=== PATIENT | female | born 1980 | race Caucasian/White ===

== ENCOUNTER 2017-09-24 19:32 | Observation (INO) | payer OTHER ==
[2017-09-24] MEDS: IBUPROFEN 800 MG TAB PO (20:15)
[2017-09-24] MEDS: NITROGLYCERIN 2% 1 GM OINT PKT TD (20:25)
[2017-09-24] MEDS: ASPIRIN 81 MG TAB PO (20:26)
[2017-09-24] MEDS: NITROGLYCERIN (SL) 0.4 MG TAB SL (20:26)
[2017-09-24 20:55] LABS: ADD MAN DIFF? NO
[2017-09-24 20:56] LABS: WHITE BLOOD COUNT 14.9 10^3/ul (4.8-10.8)
[2017-09-24 20:56] LABS: BASOPHILS % 0.2 % (0.0-2.0); EOSINOPHILS # 0.1 10^3/ul (0.0-0.5); EOSINOPHILS % 0.4 % (0.0-7.0); HEMATOCRIT 36.8 % (37.0-47.0); HEMOGLOBIN 11.7 g/dl (12.0-16.0); LYMPHOCYTES # 2.5 10^3/ul (0.8-2.9); LYMPHOCYTES % 16.7 % (15.0-51.0); MEAN CORPUSCULAR HEMOGLOBIN 23.9 pg (29.0-33.0); MEAN CORPUSCULAR HGB CONC 31.8 g/dl (32.0-37.0); MEAN CORPUSCULAR VOLUME 75.3 fl (82.0-101.0); MEAN PLATELET VOLUME 9.1 fl (7.4-10.4); MONOCYTE # 1.2 10^3/ul (0.3-0.9); MONOCYTES % 8.2 % (0.0-11.0); PLATELET COUNT 268 10^3/UL (140-415); RED BLOOD COUNT 4.89 10^6/ul (4.20-5.40); RED CELL DISTRIBUTION WIDTH 16.9 % (11.5-14.5)
[2017-09-24 21:20] LABS: ANION GAP 18 (8-16); BLOOD UREA NITROGEN 12 mg/dl (7-20); CALCIUM 9.7 mg/dl (8.4-10.2); CARBON DIOXIDE 29 mmol/L (21-31); CHLORIDE 99 mmol/L (97-110); CREATININE 0.55 mg/dl (0.44-1.00); GLUCOSE 122 mg/dl (70-220); SODIUM 142 mmol/L (135-144)
[2017-09-24] MEDS ORDERED: ONDANSETRON 4 MG INJ IV (22:00)
[2017-09-25] MEDS ORDERED: NACL 0.9% 3 ML SYG IV
[2017-09-25 01:30] LABS: CREATINE KINASE 39 IU/L (23-200)
[2017-09-25 01:42] LABS: CK INDEX 0.6; TROPONIN-I 0.025 ng/ml (0.00-0.12)
[2017-09-25 01:44] LABS: CK-MB < 0.22 ng/ml (0.0-2.4)
[2017-09-25] MEDS: ACETAMINOPHEN 325 MG TAB PO ×3 (03:54→21:47)
[2017-09-25 05:16] LABS: CREATINE KINASE 37 IU/L (23-200)
[2017-09-25] MEDS: NITROGLYCERIN (SL) 0.4 MG TAB SL (05:26)
[2017-09-25 05:29] LABS: CK INDEX 0.6
[2017-09-25 05:33] LABS: CK-MB < 0.22 ng/ml (0.0-2.4); TROPONIN-I < 0.012 ng/ml (0.00-0.12)
[2017-09-25] MEDS: AMLODIPINE 2.5 MG TAB PO (09:00)
[2017-09-25] MEDS ORDERED: FAMOTIDINE 20 MG INJ IV (09:00)
[2017-09-25] MEDS: PANTOPRAZOLE (EC) 40 MG TAB PO ×2 (09:27→09:31)
[2017-09-25] MEDS: FERROUS SULFATE (EC) 325 MG TAB PO ×3 (09:27→20:54)
[2017-09-25] MEDS: ASPIRIN (EC) 81 MG TAB PO (09:27)
[2017-09-25] MEDS: ISOSORBIDE DINITRATE 5 MG TAB PO ×7 (09:27→21:48)
[2017-09-25] MEDS: ASCORBIC ACID 500 MG TAB PO (09:28)
[2017-09-25] MEDS: ENOXAPARIN 40 MG/0.4 ML SYG SC (09:29)
[2017-09-25 13:35] LABS: CREATINE KINASE 32 IU/L (23-200)
[2017-09-25 13:48] LABS: CK INDEX 0.7; CK-MB < 0.22 ng/ml (0.0-2.4); TROPONIN-I < 0.012 ng/ml (0.00-0.12)
[2017-09-25 15:20] LABS: C-REACTIVE PROTEIN 1.7 mg/dl (0.0-0.9)
[2017-09-25 17:39] LABS: ERYTHROCYTE SEDIMENTATION RATE 17 mm/Hr (0-20)
[2017-09-25] MEDS: ATORVASTATIN 20 MG TAB PO (20:54)
[2017-09-25] MEDS: RANOLAZINE (SR) 500 MG TAB PO ×3 (20:55→21:48)
[2017-09-26] MEDS: HYDROCODONE/APAP (5/325) TAB PO ×2 (04:03→12:01)
[2017-09-26 06:28] LABS: CHOLESTEROL 123 mg/dl (100-200)
[2017-09-26 06:28] LABS: CHOL/HDL RATIO 4.2 RATIO; HDL CHOLESTEROL 29 mg/dl (34-82); LDL CHOLESTEROL,CALCULATED 50 mg/dl; TRIGLYCERIDES 218 mg/dl (0-149)
[2017-09-26 06:45] LABS: TROPONIN-I < 0.012 ng/ml (0.00-0.12)
[2017-09-26] MEDS: PANTOPRAZOLE (EC) 40 MG TAB PO (07:30)
[2017-09-26] MEDS: AMLODIPINE 2.5 MG TAB PO (09:00)
[2017-09-26] MEDS: FERROUS SULFATE (EC) 325 MG TAB PO ×3 (09:18→20:44)
[2017-09-26] MEDS: ASCORBIC ACID 500 MG TAB PO (09:18)
[2017-09-26] MEDS: ASPIRIN (EC) 81 MG TAB PO (09:19)
[2017-09-26] MEDS: ENOXAPARIN 40 MG/0.4 ML SYG SC (09:22)
[2017-09-26 11:26] LABS: ADD MAN DIFF? NO
[2017-09-26 11:30] LABS: WHITE BLOOD COUNT 9.5 10^3/ul (4.8-10.8)
[2017-09-26 11:30] LABS: BASOPHILS % 0.2 % (0.0-2.0); EOSINOPHILS # 0.1 10^3/ul (0.0-0.5); EOSINOPHILS % 1.1 % (0.0-7.0); HEMATOCRIT 33.2 % (37.0-47.0); HEMOGLOBIN 10.5 g/dl (12.0-16.0); LYMPHOCYTES # 3.5 10^3/ul (0.8-2.9); LYMPHOCYTES % 36.5 % (15.0-51.0); MEAN CORPUSCULAR HGB CONC 31.6 g/dl (32.0-37.0); MEAN PLATELET VOLUME 11.4 fl (7.4-10.4); MONOCYTE # 0.9 10^3/ul (0.3-0.9); MONOCYTES % 9.7 % (0.0-11.0); NEUTROPHILS % 52.1 % (39.0-77.0); PLATELET COUNT 199 10^3/UL (140-415); RED BLOOD COUNT 4.37 10^6/ul (4.20-5.40); RED CELL DISTRIBUTION WIDTH 17.3 % (11.5-14.5)
[2017-09-26 11:41] LABS: ANION GAP 11 (8-16); BLOOD UREA NITROGEN 11 mg/dl (7-20); CARBON DIOXIDE 31 mmol/L (21-31); CHLORIDE 106 mmol/L (97-110); CREATININE 0.47 mg/dl (0.44-1.00); GLUCOSE 115 mg/dl (70-220); MAGNESIUM 1.9 mg/dl (1.7-2.5); POTASSIUM 4.2 mmol/L (3.5-5.1); SODIUM 144 mmol/L (135-144)
[2017-09-26] MEDS: RANOLAZINE (SR) 500 MG TAB PO (20:44)
[2017-09-26] MEDS: ATORVASTATIN 20 MG TAB PO (20:44)
[2017-09-27] MEDS: HYDROCODONE/APAP (5/325) TAB PO ×2 (05:38→11:41)
[2017-09-27] MEDS: ASPIRIN (EC) 81 MG TAB PO (08:03)
[2017-09-27] MEDS: PANTOPRAZOLE (EC) 40 MG TAB PO (08:03)
[2017-09-27] MEDS: RANOLAZINE (SR) 500 MG TAB PO (08:03)
[2017-09-27] MEDS: FERROUS SULFATE (EC) 325 MG TAB PO ×2 (08:03→12:24)
[2017-09-27] MEDS: ACETAMINOPHEN 325 MG TAB PO (08:03)
[2017-09-27] MEDS: ENOXAPARIN 40 MG/0.4 ML SYG SC (08:16)
[2017-09-27] MEDS: AMLODIPINE 2.5 MG TAB PO (08:16)
[2017-09-27] MEDS: ISOSORBIDE DINITRATE 5 MG TAB PO ×2 (08:16→12:25)
[2017-09-27] MEDS: ASCORBIC ACID 500 MG TAB PO (08:46)
[2017-09-27] MEDS: ONDANSETRON 4 MG INJ IV (11:40)
[2017-09-27] MEDS: DOCUSATE SODIUM 100 MG CAP PO (11:41)
[2017-09-27] MEDS: SUMATRIPTAN 25 MG TAB PO (14:12)
== END 2017-09-27 15:19 | disposition home or self-care (01) ==
LOC: E/R 19:32 → MS3 21:45
DX: G43.109 Migraine with aura, not intractable, without status migrainosus (principal); R07.9 Chest pain, unspecified; R53.1 Weakness; I10 Essential (primary) hypertension; E78.5 Hyperlipidemia, unspecified; D72.829 Elevated white blood cell count, unspecified; E66.9 Obesity, unspecified; Z68.36 Body mass index [BMI] 36.0-36.9, adult; D50.9 Iron deficiency anemia, unspecified; K21.9 Gastro-esophageal reflux disease without esophagitis; Z79.82 Long term (current) use of aspirin
CPT/HCPCS: 36415; 70450; 70553; 71045; 80048; 80061; 81025; 82550; 82553; 83735; 84100; 84484; 85025; 85651; 86140; 93005; 93306; 99285-25

== ENCOUNTER 2017-09-27 15:58 | Emergency (ER) | payer OTHER | END 2017-09-27 17:11 | disposition home or self-care (01) | LOC: E/R 15:58 | DX: R55 Syncope and collapse (principal); I25.10 Atherosclerotic heart disease of native coronary artery without angina pectoris; I10 Essential (primary) hypertension; Z79.82 Long term (current) use of aspirin | CPT/HCPCS: 82962; 93005; 99284-25 ==

== ENCOUNTER 2017-10-26 08:24 | Inpatient (IN) | payer OTHER ==
[2017-10-26] MEDS: ONDANSETRON 4 MG INJ IV (08:59)
[2017-10-26] MEDS: morphine 4 MG/ML VIAL IV (08:59)
[2017-10-26] MEDS: NITROGLYCERIN 2% 1 GM OINT PKT TD (09:00)
[2017-10-26] MEDS: ASPIRIN 81 MG TAB PO (09:00)
[2017-10-26 09:38] LABS: ADD MAN DIFF? NO
[2017-10-26 09:51] LABS: WHITE BLOOD COUNT 10.1 10^3/ul (4.8-10.8)
[2017-10-26 09:51] LABS: BASOPHILS % 0.2 % (0.0-2.0); EOSINOPHILS # 0.1 10^3/ul (0.0-0.5); EOSINOPHILS % 0.8 % (0.0-7.0); HEMATOCRIT 34.8 % (37.0-47.0); HEMOGLOBIN 11.4 g/dl (12.0-16.0); LYMPHOCYTES # 2.5 10^3/ul (0.8-2.9); MEAN CORPUSCULAR HEMOGLOBIN 24.4 pg (29.0-33.0); MEAN CORPUSCULAR HGB CONC 32.8 g/dl (32.0-37.0); MEAN CORPUSCULAR VOLUME 74.5 fl (82.0-101.0); MEAN PLATELET VOLUME 9.5 fl (7.4-10.4); MONOCYTE # 1.1 10^3/ul (0.3-0.9); MONOCYTES % 10.7 % (0.0-11.0); NEUTROPHIL # 6.4 10^3/ul (1.6-7.5); PLATELET COUNT 129 10^3/UL (140-415); RED BLOOD COUNT 4.67 10^6/ul (4.20-5.40); RED CELL DISTRIBUTION WIDTH 15.9 % (11.5-14.5)
[2017-10-26 10:04] LABS: ANION GAP 15 (8-16); BLOOD UREA NITROGEN 10 mg/dl (7-20); CALCIUM 8.6 mg/dl (8.4-10.2); CARBON DIOXIDE 26 mmol/L (21-31); CHLORIDE 105 mmol/L (97-110); CREATININE 0.46 mg/dl (0.44-1.00); GLUCOSE 115 mg/dl (70-220); POTASSIUM 4.1 mmol/L (3.5-5.1); SODIUM 142 mmol/L (135-144)
[2017-10-26 10:16] LABS: TROPONIN-I 0.013 ng/ml (0.000-0.120)
[2017-10-26 10:28] LABS: CREATINE KINASE 65 IU/L (23-200)
[2017-10-26 10:41] LABS: CK INDEX 0.5; TROPONIN-I 0.014 ng/ml (0.000-0.120)
[2017-10-26] MEDS ORDERED: ONDANSETRON 4 MG INJ IV ×2 (12:00→15:00)
[2017-10-26] MEDS ORDERED: ACETAMINOPHEN 325 MG TAB PO ×2 (12:00→15:00)
[2017-10-26] MEDS ORDERED: NACL 0.9% 3 ML SYG IV (15:00)
[2017-10-26] MEDS ORDERED: MAGNESIUM HYDROXIDE 30ML CUP PO (15:00)
[2017-10-26] MEDS ORDERED: BISACODYL (EC) 5 MG TAB PO (15:00)
[2017-10-26] MEDS ORDERED: BISACODYL 10 MG SUPP PR (15:00)
[2017-10-26] MEDS ORDERED: ZOLPIDEM 5 MG TAB PO (15:00)
[2017-10-26 15:28] LABS: CREATINE KINASE 71 IU/L (23-200)
[2017-10-26 15:40] LABS: CK INDEX 1.8
[2017-10-26 15:48] LABS: TROPONIN-I 0.334 ng/ml (0.000-0.120)
[2017-10-26] MEDS: IBUPROFEN 400 MG TAB NGT (16:48)
[2017-10-26] MEDS: FERROUS SULFATE (EC) 325 MG TAB PO (20:21)
[2017-10-26] MEDS: ISOSORBIDE DINITRATE 5 MG TAB PO ×2 (20:21→20:22)
[2017-10-26] MEDS: RANOLAZINE (SR) 500 MG TAB PO (20:21)
[2017-10-26] MEDS: ATORVASTATIN 20 MG TAB PO (20:21)
[2017-10-26 20:37] LABS: CREATINE KINASE 68 IU/L (23-200)
[2017-10-26 20:49] LABS: CK INDEX 1.6; CK-MB 1.06 ng/ml (0.0-2.4)
[2017-10-26 20:55] LABS: TROPONIN-I 0.355 ng/ml (0.000-0.120)
[2017-10-26] MEDS: HYDROCODONE/APAP (5/325) TAB PO (22:08)
[2017-10-27 02:47] LABS: CREATINE KINASE 65 IU/L (23-200)
[2017-10-27 02:50] LABS: CHOL/HDL RATIO 3.5 RATIO; HDL CHOLESTEROL 30 mg/dl (34-82); LDL CHOLESTEROL,CALCULATED 53 mg/dl; TRIGLYCERIDES 117 mg/dl (0-149)
[2017-10-27 02:50] LABS: CHOLESTEROL 106 mg/dl (100-200)
[2017-10-27 03:00] LABS: CK INDEX 1.5; CK-MB 0.96 ng/ml (0.0-2.4)
[2017-10-27 03:07] LABS: TROPONIN-I 0.211 ng/ml (0.000-0.120)
[2017-10-27] MEDS: HYDROCODONE/APAP (5/325) TAB PO ×3 (04:04→22:23)
[2017-10-27] MEDS: PANTOPRAZOLE (EC) 40 MG TAB PO (05:44)
[2017-10-27] MEDS: RANOLAZINE (SR) 500 MG TAB PO ×2 (08:37→20:30)
[2017-10-27] MEDS: FERROUS SULFATE (EC) 325 MG TAB PO ×3 (08:37→20:29)
[2017-10-27] MEDS: ASCORBIC ACID 500 MG TAB PO (08:38)
[2017-10-27] MEDS: ISOSORBIDE DINITRATE 5 MG TAB PO ×3 (08:38→20:30)
[2017-10-27] MEDS: IBUPROFEN 400 MG TAB NGT (08:38)
[2017-10-27] MEDS: AMLODIPINE 2.5 MG TAB PO (08:38)
[2017-10-27] MEDS: ASPIRIN (EC) 81 MG TAB PO (08:38)
[2017-10-27] MEDS: ENOXAPARIN 40 MG/0.4 ML SYG SC (08:41)
[2017-10-27] MEDS: ATORVASTATIN 20 MG TAB PO (20:29)
[2017-10-27] MEDS: METHYLPREDNISOLONE 40 MG INJ IV (20:31)
[2017-10-27] MEDS: COLCHICINE 0.6 MG TAB PO (22:15)
[2017-10-28] MEDS: HYDROCODONE/APAP (5/325) TAB PO (05:58)
[2017-10-28] MEDS: PANTOPRAZOLE (EC) 40 MG TAB PO (05:58)
[2017-10-28 07:44] LABS: ADD MAN DIFF? NO
[2017-10-28 07:56] LABS: BASOPHILS % 0.1 % (0.0-2.0); HEMATOCRIT 34.6 % (37.0-47.0); HEMOGLOBIN 11.2 g/dl (12.0-16.0); LYMPHOCYTES # 1.4 10^3/ul (0.8-2.9); LYMPHOCYTES % 14.2 % (15.0-51.0); MEAN CORPUSCULAR HGB CONC 32.4 g/dl (32.0-37.0); MEAN CORPUSCULAR VOLUME 74.2 fl (82.0-101.0); MEAN PLATELET VOLUME 10.1 fl (7.4-10.4); MONOCYTE # 0.4 10^3/ul (0.3-0.9); MONOCYTES % 3.6 % (0.0-11.0); NEUTROPHIL # 8.3 10^3/ul (1.6-7.5); NEUTROPHILS % 81.6 % (39.0-77.0); PLATELET COUNT 134 10^3/UL (140-415); RED BLOOD COUNT 4.66 10^6/ul (4.20-5.40); RED CELL DISTRIBUTION WIDTH 15.6 % (11.5-14.5)
[2017-10-28 07:56] LABS: WHITE BLOOD COUNT 10.1 10^3/ul (4.8-10.8)
[2017-10-28 07:57] LABS: POSITIVE DIFF @See below
[2017-10-28] MEDS: SUMATRIPTAN 25 MG TAB PO (08:12)
[2017-10-28] MEDS: FERROUS SULFATE (EC) 325 MG TAB PO ×2 (08:12→11:45)
[2017-10-28] MEDS: ASPIRIN (EC) 81 MG TAB PO (08:12)
[2017-10-28] MEDS: AMLODIPINE 2.5 MG TAB PO (08:12)
[2017-10-28] MEDS: RANOLAZINE (SR) 500 MG TAB PO (08:12)
[2017-10-28] MEDS: ASCORBIC ACID 500 MG TAB PO (08:12)
[2017-10-28] MEDS: ISOSORBIDE DINITRATE 5 MG TAB PO ×2 (08:12→11:45)
[2017-10-28] MEDS: COLCHICINE 0.6 MG TAB PO (08:12)
[2017-10-28] MEDS: METHYLPREDNISOLONE 40 MG INJ IV (08:12)
[2017-10-28 08:16] LABS: ALANINE AMINOTRANSFERASE 33 IU/L (13-69); ALBUMIN 3.8 g/dl (3.3-4.9); ALBUMIN/GLOBULIN RATIO 1.22; ALKALINE PHOSPHATASE 74 IU/L (42-121); ANION GAP 16 (8-16); ASPARTATE AMINO TRANSFERASE 23 IU/L (15-46); BLOOD UREA NITROGEN 7 mg/dl (7-20); CALCIUM 9.1 mg/dl (8.4-10.2); CARBON DIOXIDE 28 mmol/L (21-31); CHLORIDE 104 mmol/L (97-110); CREATININE 0.45 mg/dl (0.44-1.00); GLUCOSE 182 mg/dl (70-220); POTASSIUM 4.4 mmol/L (3.5-5.1); SODIUM 144 mmol/L (135-144); TOTAL PROTEIN 6.9 g/dl (6.1-8.1)
[2017-10-28] MEDS: DOCUSATE SODIUM 100 MG CAP PO (08:19)
[2017-10-28 08:32] LABS: TROPONIN-I 0.052 ng/ml (0.000-0.120)
[2017-10-28] MEDS: ENOXAPARIN 40 MG/0.4 ML SYG SC (08:32)
[2017-10-28] MEDS: IBUPROFEN 400 MG TAB NGT ×2 (09:36→13:48)
== END 2017-10-28 15:50 | disposition home or self-care (01) | DRG 311 ==
LOC: TEL 10-27 17:42 → E/R 08:24 → MS3 11:38
DX: I20.1 Angina pectoris with documented spasm (principal); D64.9 Anemia, unspecified; M06.80 Other specified rheumatoid arthritis, unspecified site; E66.9 Obesity, unspecified; R00.1 Bradycardia, unspecified; R79.89 Other specified abnormal findings of blood chemistry; F41.9 Anxiety disorder, unspecified; E78.5 Hyperlipidemia, unspecified; Z86.79 Personal history of other diseases of the circulatory system; Z68.36 Body mass index [BMI] 36.0-36.9, adult; Z95.5 Presence of coronary angioplasty implant and graft; Z79.82 Long term (current) use of aspirin
CPT/HCPCS: 36415; 71045; 80048; 80053; 80061; 81025; 82550; 82553; 84484; 85025; 93005; 96374; 96375; 99217; 99285-25; G0378

== ENCOUNTER 2017-11-25 19:14 | Emergency (ER) | payer OTHER ==
[2017-11-25] MEDS: SOD CHLORIDE 0.9% 1,000 ML IV (21:45)
[2017-11-25] MEDS: FAMOTIDINE 20 MG INJ IV (21:46)
[2017-11-25] MEDS: ONDANSETRON 4 MG INJ IV (21:46)
[2017-11-25] MEDS: morphine 4 MG/ML VIAL IV (21:46)
[2017-11-25 22:06] LABS: ADD MAN DIFF? NO
[2017-11-25 22:15] LABS: BASOPHILS % 0.2 % (0.0-2.0); EOSINOPHILS # 0.1 10^3/ul (0.0-0.5); EOSINOPHILS % 0.6 % (0.0-7.0); HEMOGLOBIN 11.7 g/dl (12.0-16.0); LYMPHOCYTES # 2.9 10^3/ul (0.8-2.9); MEAN CORPUSCULAR HEMOGLOBIN 24.5 pg (29.0-33.0); MEAN CORPUSCULAR HGB CONC 31.6 g/dl (32.0-37.0); MEAN CORPUSCULAR VOLUME 77.6 fl (82.0-101.0); MEAN PLATELET VOLUME 9.4 fl (7.4-10.4); MONOCYTE # 0.9 10^3/ul (0.3-0.9); MONOCYTES % 9.2 % (0.0-11.0); NEUTROPHIL # 5.7 10^3/ul (1.6-7.5); NEUTROPHILS % 59.5 % (39.0-77.0); PLATELET COUNT 283 10^3/UL (140-415); RED BLOOD COUNT 4.77 10^6/ul (4.20-5.40); RED CELL DISTRIBUTION WIDTH 16.7 % (11.5-14.5)
[2017-11-25 22:15] LABS: WHITE BLOOD COUNT 9.6 10^3/ul (4.8-10.8)
[2017-11-25 22:32] LABS: ADD UMIC YES; UR ASCORBIC ACID 40 mg/dL (NEGATIVE); UR BILIRUBIN (Dip) NEGATIVE (NEGATIVE); UR BLOOD (Dip) NEGATIVE (NEGATIVE); UR CLARITY CLEAR (CLEAR); UR COLOR AMBER (YELLOW); UR GLUCOSE (Dip) NEGATIVE (NEGATIVE); UR KETONES (Dip) TRACE mg/dL (NEGATIVE); UR LEUKOCYTE ESTERASE (Dip) NEGATIVE Leu/ul (NEGATIVE); UR MUCUS MANY /HPF (NONE SEEN); UR NITRITE (Dip) NEGATIVE (NEGATIVE); UR RBC 2 /HPF (0-5); UR SPECIFIC GRAVITY (Dip) 1.029 (1.003-1.030); UR SQUAMOUS EPITHELIAL CELL FEW /HPF (FEW); UR TOTAL PROTEIN (Dip) 1+ mg/dl (NEGATIVE); UR UROBILINOGEN (Dip) NEGATIVE (NEGATIVE); UR WBC 0 /HPF (0-5)
[2017-11-25 22:35] LABS: ALANINE AMINOTRANSFERASE 45 IU/L (13-69); ALBUMIN 4.4 g/dl (3.3-4.9); ALBUMIN/GLOBULIN RATIO 1.25; ALKALINE PHOSPHATASE 82 IU/L (42-121); ANION GAP 14 (8-16); ASPARTATE AMINO TRANSFERASE 26 IU/L (15-46); BILIRUBIN,INDIRECT 0.4 mg/dl (0-1.1); BILIRUBIN,TOTAL 0.4 mg/dl (0.2-1.3); BLOOD UREA NITROGEN 10 mg/dl (7-20); CALCIUM 9.3 mg/dl (8.4-10.2); CARBON DIOXIDE 29 mmol/L (21-31); CHLORIDE 103 mmol/L (97-110); GLUCOSE 93 mg/dl (70-220); LIPASE 41 U/L (23-300); POTASSIUM 3.7 mmol/L (3.5-5.1); SODIUM 142 mmol/L (135-144); TOTAL PROTEIN 7.9 g/dl (6.1-8.1)
== END 2017-11-25 23:20 | disposition home or self-care (01) ==
LOC: FTE 19:14
DX: K80.50 Calculus of bile duct without cholangitis or cholecystitis without obstruction (principal); Z79.82 Long term (current) use of aspirin
CPT/HCPCS: 36415; 74176; 80053; 81001; 81025; 83690; 85025; 96374; 96375; 99285-25

== ENCOUNTER 2018-01-06 06:47 | Day surgery (SDC) | payer OTHER ==
[2018-01-06] MEDS ORDERED: PROPOFOL 20 ML (07:26)
[2018-01-06] MEDS ORDERED: LIDOCAINE 2% (SDV) 5 ML INJ (07:26)
[2018-01-06] MEDS ORDERED: FENTAnyl 50 MCG/ML VIAL ×2 (07:27→09:28)
[2018-01-06] MEDS ORDERED: MIDAZOLAM 1 MG/ML 2 ML INJ (07:27)
[2018-01-06] MEDS ORDERED: MEPERIDINE 25 MG INJ IV (08:30)
[2018-01-06] MEDS ORDERED: FENTAnyl 50 MCG/ML VIAL IV ×2 (08:30)
[2018-01-06] MEDS ORDERED: MIDAZOLAM 1 MG/ML 2 ML INJ IV (08:30)
[2018-01-06] MEDS ORDERED: ROCURONIUM 50 MG INJ (09:02)
[2018-01-06] MEDS ORDERED: ONDANSETRON 4 MG INJ (09:02)
[2018-01-06] MEDS ORDERED: SUCCINYLCHOLINE CHLORIDE 100 MG/5 ML SYG IV (09:02)
[2018-01-06] MEDS ORDERED: DEXAMETHASONE 4 MG/ML 1 ML INJ (09:02)
[2018-01-06] MEDS ORDERED: FAMOTIDINE 20 MG INJ (09:02)
[2018-01-06] MEDS ORDERED: SUGAMMADEX SODIUM 200 MG/2 ML VIAL IV (09:03)
[2018-01-06] MEDS: BUPIVACAINE 0.25%/EPI (SDV) 30 ML INJ (09:04)
[2018-01-06] MEDS ORDERED: ACETAMINOPHEN 1000MG/100ML IV 100 ML (09:16)
[2018-01-06] MEDS ORDERED: GLYCOPYRROLATE 1 MG INJ (09:28)
[2018-01-06] MEDS ORDERED: KETOROLAC 30 MG INJ IV (10:00)
[2018-01-06] MEDS ORDERED: morphine 2 MG INJ IV (10:00)
[2018-01-06] MEDS ORDERED: ONDANSETRON 4 MG INJ IV (10:00)
[2018-01-06] MEDS ORDERED: IBUPROFEN 600 MG TAB PO (10:00)
[2018-01-06] MEDS ORDERED: HYDROCODONE/APAP (5/325) TAB PO ×2 (10:00)
[2018-01-06] MEDS: HYDROmorphONE 1 MG/5 ML IV SYRINGE IV ×3 (10:12→10:39)
[2018-01-06] MEDS: ONDANSETRON 4 MG INJ IV ×2 (10:14→11:38)
== END 2018-01-06 12:15 | disposition home or self-care (01) ==
LOC: SDS 06:47
DX: K80.10 Calculus of gallbladder with chronic cholecystitis without obstruction (principal); I10 Essential (primary) hypertension; I25.10 Atherosclerotic heart disease of native coronary artery without angina pectoris; E66.9 Obesity, unspecified; Z68.36 Body mass index [BMI] 36.0-36.9, adult
CPT/HCPCS: 47562; 88304

== ENCOUNTER 2018-02-07 13:54 | Emergency (ER) | payer OTHER ==
[2018-02-07 14:23] LABS: ADD MAN DIFF? NO
[2018-02-07 14:25] LABS: WHITE BLOOD COUNT 12.9 10^3/ul (4.8-10.8)
[2018-02-07 14:25] LABS: BASOPHILS % 0.2 % (0.0-2.0); EOSINOPHILS # 0.1 10^3/ul (0.0-0.5); EOSINOPHILS % 0.5 % (0.0-7.0); HEMATOCRIT 35.5 % (37.0-47.0); HEMOGLOBIN 11.2 g/dl (12.0-16.0); LYMPHOCYTES # 1.5 10^3/ul (0.8-2.9); LYMPHOCYTES % 11.8 % (15.0-51.0); MEAN CORPUSCULAR HEMOGLOBIN 23.3 pg (29.0-33.0); MEAN CORPUSCULAR HGB CONC 31.5 g/dl (32.0-37.0); MEAN CORPUSCULAR VOLUME 73.8 fl (82.0-101.0); MEAN PLATELET VOLUME 8.5 fl (7.4-10.4); MONOCYTE # 1.1 10^3/ul (0.3-0.9); MONOCYTES % 8.4 % (0.0-11.0); NEUTROPHIL # 10.2 10^3/ul (1.6-7.5); NEUTROPHILS % 78.6 % (39.0-77.0); PLATELET COUNT 205 10^3/UL (140-415); RED BLOOD COUNT 4.81 10^6/ul (4.20-5.40); RED CELL DISTRIBUTION WIDTH 15.4 % (11.5-14.5)
[2018-02-07] MEDS: ASPIRIN 81 MG TAB PO (14:33)
[2018-02-07] MEDS: morphine 4 MG/ML VIAL IV ×2 (14:38→15:13)
[2018-02-07 15:44] LABS: ANION GAP 10 (8-16); BLOOD UREA NITROGEN 9 mg/dl (7-20); CALCIUM 9.3 mg/dl (8.4-10.2); CARBON DIOXIDE 32 mmol/L (21-31); CHLORIDE 103 mmol/L (97-110); CREATININE 0.49 mg/dl (0.44-1.00); GLUCOSE 152 mg/dl (70-220); SODIUM 141 mmol/L (135-144); TROPONIN-I < 0.010 ng/ml (0.000-0.120)
[2018-02-07 16:07] LABS: ALANINE AMINOTRANSFERASE 33 IU/L (13-69); ALBUMIN 4.2 g/dl (3.3-4.9); ALKALINE PHOSPHATASE 93 IU/L (42-121); ASPARTATE AMINO TRANSFERASE 31 IU/L (15-46); BILIRUBIN,INDIRECT 0.5 mg/dl (0-1.1); BILIRUBIN,TOTAL 0.5 mg/dl (0.2-1.3); LIPASE 35 U/L (23-300); TOTAL PROTEIN 7.6 g/dl (6.1-8.1)
== END 2018-02-07 17:20 | disposition home or self-care (01) ==
LOC: E/R 13:54
DX: R07.89 Other chest pain (principal); R10.13 Epigastric pain; Z79.82 Long term (current) use of aspirin
CPT/HCPCS: 36415; 71045; 80048; 80076; 81025; 83690; 84484; 85025; 93005; 96374; 96376; 99285-25

== ENCOUNTER 2018-05-04 14:11 | Observation (INO) | payer OTHER ==
[2018-05-04 15:38] LABS: ADD MAN DIFF? NO
[2018-05-04 15:40] LABS: BASOPHILS % 0.2 % (0.0-2.0); EOSINOPHILS # 0.1 10^3/ul (0.0-0.5); EOSINOPHILS % 0.7 % (0.0-7.0); HEMATOCRIT 34.2 % (37.0-47.0); HEMOGLOBIN 10.9 g/dl (12.0-16.0); LYMPHOCYTES % 33.3 % (15.0-51.0); MEAN CORPUSCULAR HEMOGLOBIN 23.9 pg (29.0-33.0); MEAN CORPUSCULAR HGB CONC 31.9 g/dl (32.0-37.0); MEAN CORPUSCULAR VOLUME 74.8 fl (82.0-101.0); MEAN PLATELET VOLUME 9.4 fl (7.4-10.4); MONOCYTE # 1.2 10^3/ul (0.3-0.9); MONOCYTES % 10.3 % (0.0-11.0); NEUTROPHIL # 6.6 10^3/ul (1.6-7.5); NEUTROPHILS % 55.1 % (39.0-77.0); PLATELET COUNT 286 10^3/UL (140-415); RED BLOOD COUNT 4.57 10^6/ul (4.20-5.40); RED CELL DISTRIBUTION WIDTH 17.5 % (11.5-14.5)
[2018-05-04 15:44] LABS: PARTIAL THROMBOPLASTIN TIME 27.7 Sec (23.0-35.0)
[2018-05-04] MEDS: ASPIRIN 325 MG TAB PO (15:45)
[2018-05-04] MEDS: morphine 4 MG/ML VIAL IV (15:47)
[2018-05-04] MEDS: ONDANSETRON 4 MG INJ IV ×2 (15:47→19:46)
[2018-05-04 15:56] LABS: ALANINE AMINOTRANSFERASE 27 IU/L (13-69); ALBUMIN 4.1 g/dl (3.3-4.9); ALBUMIN/GLOBULIN RATIO 1.17; ALKALINE PHOSPHATASE 80 IU/L (42-121); ANION GAP 10 (5-13); ASPARTATE AMINO TRANSFERASE 21 IU/L (15-46); BILIRUBIN,INDIRECT 0.3 mg/dl (0-1.1); BILIRUBIN,TOTAL 0.3 mg/dl (0.2-1.3); BLOOD UREA NITROGEN 7 mg/dl (7-20); CALCIUM 9.4 mg/dl (8.4-10.2); CARBON DIOXIDE 31 mmol/L (21-31); CHLORIDE 102 mmol/L (97-110); CREATINE KINASE 62 IU/L (23-200); Estimated GFR > 60 mL/min (>60); GLUCOSE 120 mg/dl (70-220); LIPASE 60 U/L (23-300); POTASSIUM 3.9 mmol/L (3.5-5.1); SODIUM 143 mmol/L (135-144); TOTAL PROTEIN 7.6 g/dl (6.1-8.1)
[2018-05-04] MEDS ORDERED: NITROGLYCERIN (SL) 0.4 MG TAB SL ×3 (16:00→22:00)
[2018-05-04 16:08] LABS: B-TYPE NATRIURETIC PEPTIDE 101 PG/ML (0-125); CK INDEX 0.4; CK-MB < 0.22 ng/ml (0.0-2.4); TROPONIN-I < 0.012 ng/ml (0.000-0.120)
[2018-05-04 16:29] LABS: INR 0.92; PROTIME 12.4 Sec (11.9-14.9)
[2018-05-04] MEDS: HYDROmorphONE 2 MG/ML SYG IV (16:40)
[2018-05-04] MEDS: SOD CHLORIDE 0.9% 1,000 ML IV (17:11)
[2018-05-04] MEDS: NITROGLYCERIN (SL) 0.4 MG TAB SL ×2 (17:11→20:26)
[2018-05-04] MEDS ORDERED: ACETAMINOPHEN 325 MG TAB PO (17:30)
[2018-05-04] MEDS ORDERED: ONDANSETRON 4 MG INJ IV (17:30)
[2018-05-04] MEDS ORDERED: morphine 2 MG INJ IV (19:00)
[2018-05-04 22:36] LABS: ADD MAN DIFF? NO
[2018-05-04 22:41] LABS: BASOPHILS % 0.2 % (0.0-2.0); EOSINOPHILS % 0.3 % (0.0-7.0); HEMATOCRIT 30.1 % (37.0-47.0); HEMOGLOBIN 9.6 g/dl (12.0-16.0); LYMPHOCYTES % 27.5 % (15.0-51.0); MEAN CORPUSCULAR HEMOGLOBIN 23.9 pg (29.0-33.0); MEAN CORPUSCULAR HGB CONC 31.9 g/dl (32.0-37.0); MEAN CORPUSCULAR VOLUME 75.1 fl (82.0-101.0); MEAN PLATELET VOLUME 9.5 fl (7.4-10.4); MONOCYTES % 9.7 % (0.0-11.0); NEUTROPHIL # 6.7 10^3/ul (1.6-7.5); NEUTROPHILS % 61.9 % (39.0-77.0); PLATELET COUNT 228 10^3/UL (140-415); RED BLOOD COUNT 4.01 10^6/ul (4.20-5.40); RED CELL DISTRIBUTION WIDTH 17.4 % (11.5-14.5)
[2018-05-04 22:41] LABS: WHITE BLOOD COUNT 10.7 10^3/ul (4.8-10.8)
[2018-05-04 23:00] LABS: INR 0.94; PARTIAL THROMBOPLASTIN TIME 28.4 Sec (23.0-35.0); PROTIME 12.7 Sec (11.9-14.9)
[2018-05-04 23:09] LABS: CHOL/HDL RATIO 3.9 RATIO; HDL CHOLESTEROL 34 mg/dl (34-82); LDL CHOLESTEROL,CALCULATED 78 mg/dl; TRIGLYCERIDES 112 mg/dl (0-149)
[2018-05-04 23:09] LABS: CHOLESTEROL 134 mg/dl (100-200)
[2018-05-05 06:34] LABS: TROPONIN-I 0.014 ng/ml (0.000-0.120)
[2018-05-05] MEDS: SERTRALINE 50 MG TAB PO (08:58)
[2018-05-05] MEDS: ASPIRIN (EC) 81 MG TAB PO (08:58)
[2018-05-05] MEDS: ASCORBIC ACID 500 MG TAB PO (08:58)
[2018-05-05] MEDS: ACETAMINOPHEN 500 MG TAB PO ×2 (08:58→20:09)
[2018-05-05] MEDS: HYDROXYCHLOROQUINE 200 MG TAB PO ×2 (09:00→11:15)
[2018-05-05] MEDS: ISOSORBIDE MONONITRATE(SR)30 MG TAB PO (11:14)
[2018-05-05] MEDS: ENOXAPARIN 40 MG/0.4 ML SYG SC (11:38)
[2018-05-05 16:08] LABS: TROPONIN-I < 0.012 ng/ml (0.000-0.120)
[2018-05-05] MEDS: ATORVASTATIN 20 MG TAB PO (20:09)
[2018-05-06] MEDS: ASPIRIN (EC) 81 MG TAB PO (08:27)
[2018-05-06] MEDS: ISOSORBIDE MONONITRATE(SR)60 MG TAB PO (08:28)
[2018-05-06] MEDS: AMLODIPINE 2.5 MG TAB PO (08:28)
[2018-05-06] MEDS: HYDROXYCHLOROQUINE 200 MG TAB PO (08:28)
[2018-05-06] MEDS: SERTRALINE 50 MG TAB PO (08:28)
[2018-05-06] MEDS: ASCORBIC ACID 500 MG TAB PO (08:28)
[2018-05-06] MEDS: ACETAMINOPHEN 500 MG TAB PO (17:14)
== END 2018-05-06 18:30 | disposition home or self-care (01) ==
LOC: E/R 14:11 → 6WM 17:09
DX: R07.9 Chest pain, unspecified (principal); M06.9 Rheumatoid arthritis, unspecified; E78.5 Hyperlipidemia, unspecified; R00.1 Bradycardia, unspecified; Z79.82 Long term (current) use of aspirin
CPT/HCPCS: 36415; 71045; 80053; 80061; 82550; 82553; 83690; 83880; 84484; 85025; 85610; 85730; 93005; 93306; 96374; 96375; 99291-25; G0378